=== PATIENT | female | born 1985 | race African-American/Black ===

== ENCOUNTER 2019-02-22 08:59 | Emergency (ER) | payer MEDICAID ==
[~2019-02-22] VITALS: Ht 165.1 cm; Wt 64.0 kg
[2019-02-22] MEDS ORDERED: ONDANSETRON 4MG ODT PO ONE (10:30)
[2019-02-22 10:41] LABS: CLARITY URINE CLOUDY (CLEAR); COLOR URINE YELLOW (YELLOW); KETONES URINE 3+ (NEGATIVE); LEUKOCYTE ESTERASE URINE TRACE (NEGATIVE); NITRITE URINE NEGATIVE (NEGATIVE); OCCULT BLOOD URINE NEGATIVE (NEGATIVE); PH URINE 7.5 (4.5-8.0); PROTEIN URINE 1+ (NEGATIVE); SPECIFIC GRAVITY URINE 1.027 (1.005-1.030); UROBILINOGEN URINE 0.2 E.U./dL (0.2-1.0)
[2019-02-22 10:44] LABS: BASOPHILS % 0.3 % (0.0-2.0); EOSINOPHILS % 1.1 % (0.0-5.0); HEMATOCRIT. 32.2 % (36.0-48.0); HEMOGLOBIN. 10.4 g/dL (12.0-16.0); LYMPHOCYTES % 10.5 % (20.0-50.0); MEAN CORPUSCULAR VOLUME 71.4 fL (81.0-99.0); MEAN PLATELET VOLUME 9.6 fl (7.4-10.4); MONOCYTES % 6.4 % (2.0-8.0); NEUTROPHILS % 81.7 % (40.0-76.0); PLATELET 250 x1000/uL (130-400); RED BLOOD CELL COUNT 4.51 mill/uL (4.2-5.4); RED CELL DISTRIBUTION WIDTH 19.6 % (11.6-14.6)
[2019-02-22 10:51] LABS: CHLORIDE 104 mEq/L (98-107)
[2019-02-22 11:14] LABS: B-HCG QUANTITATIVE 75515 mIU/mL (<3)
[2019-02-22 14:25] VITALS: BP 121/62
== END 2019-02-22 14:29 | disposition home or self-care (01) ==
LOC: ER 08:59
DX: O46.91 Antepartum hemorrhage, unspecified, first trimester (principal); O00.01 Abdominal pregnancy with intrauterine pregnancy; Z3A.08 8 weeks gestation of pregnancy
CPT/HCPCS: 36415; 76801; 76817; 80053; 81003; 81025; 84702; 85025; 86850; 86900; 86901; 99284; Q0162

== ENCOUNTER 2020-04-20 16:04 | Emergency (ER) | payer MEDICAID ==
[~2020-04-20] VITALS: Ht 152.4 cm; Wt 65.0 kg
[2020-04-20] MEDS ORDERED: IBUPROFEN 600MG TABLET PO ONE (17:00)
[2020-04-20 18:36] VITALS: BP 136/88
== END 2020-04-20 18:40 | disposition home or self-care (01) ==
LOC: ER 16:09
DX: S16.1XXA Strain of muscle, fascia and tendon at neck level, initial encounter (principal); V29.40XA Motorcycle driver injured in collision with unspecified motor vehicles in traffic accident, initial encounter; Y93.89 Activity, other specified; Y92.89 Other specified places as the place of occurrence of the external cause; Y99.8 Other external cause status
CPT/HCPCS: 71045; 72040; 72100; 73030; 81025; 99284